=== PATIENT | male | born 1955 | race Caucasian/White ===

== ENCOUNTER → 2020-10-12 00:27 | Outpatient (CLI) | payer BC, SELFPAY ==
[2020-10-12 18:19] LABS: SARS-CoV-2 RNA PCR Negative
== END ==
PROVIDERS: PCP Physician Assistant; Visit Provider Internal Medicine Gastroenterology
DX: Z01.812 Encounter for preprocedural laboratory examination (principal); Z20.822 Contact with and (suspected) exposure to COVID-19
CPT/HCPCS: C9803; U0003; U0005

== ENCOUNTER 2020-10-15 00:14 | Day surgery (SDC) | payer BC, SELFPAY ==
[2020-09-21 13:59] VITALS: BMI 36.5
[2020-10-15] MEDS: LACTATED RINGERS 1,000 ML 150 ML IV CONT (06:30)
--- NOTE | 2020-10-15 06:37 | WPDANESEPPF ---
Anes - Initial Pre Proc Eval Procedure: Operation Date: 10/15/20 07:30 Proposed Procedures p Screening Colonoscopy - Brad De Los Santos MD Date/Time: 10/15/20 06:37 Surgeon: Brad De Los Santos MD Pre Op Diagnosis: Neoplasm Screening Patient Data Age: 65 Gender: M Height: 6 ft 2 in Weight: 128 kg Allergies Allergy/AdvReac Type Severity Reaction Status Date / Time No Known Allergies Allergy Verified 09/21/20 14:00 Home Medications Medication Instructions Recorded Confirmed Type enalapril maleate 10 mg tablet 10 mg PO DAILY #90 tablet 11/02/19 09/21/20 Rx esomeprazole magnesium 20 mg 40 mg PO DAILY cap 08/21/20 09/21/20 History capsule,delayed release Boswellia 500 mg PO DAILY 09/21/20 09/21/20 History turmeric root extract 500 mg PO DAILY 09/21/20 09/21/20 History Patient hx anesthesia problems: none Family hx anesthesia problems: none PMFSH Past Medical History Medical History Abnormal myocardial perfusion study Benign hypertension Cervical spine disease (~2008) chronic Exertional angina Fatty liver GERD (gastroesophageal reflux disease) Hypertension Neck pain Obesity Surgical History Surgical History History of hernia repair (~1960) Family History Family History Grandparent Diabetes mellitus Acute myocardial infarction Cerebrovascular accident Father Asthma Family history of malignant neoplasm of esophagus Other Family history of arthritis Family history of cardiovascular disease Family history of malignant neoplasm Family history of malignant neoplasm of breast in first degree relative Family history of seizure disorder Hypertension Malignant neoplasm of prostate Social History Social History Smoking packs per day: 1.5 Smoking cigarettes per day: 30.0 Years smoked: 4 Smoking pack-years: 6.00 Smoking status: Former smoker Tobacco type: cigarettes Second hand tobacco smoke exposure: No Smoking end date: 08/31/82 Alcohol intake: current Drinks per week: 2 Substance use: never Substance use type: does not use Living arrangements: with family Gender identity (if verbalized by the patient): Male Spiritual care concerns: No Anes - Eval Final PreProcedure Day of Procedure 10/15/20 06:37 Patient weight: obese Heart: regular rate and rhythm Lungs: clear to auscultation Airway: Mallampati scale class II Neurological: alert and oriented Last oral intake: >/= 8 hours ASA classification: III Emergent: no Anesthetic plan: proceed Anesthesia type and monitoring: general GIVS and standard monitoring Informed Consent: The patient's anesthetic plan and its attendant risks and benefits were discussed with the patient/family/POA. Questions were solicited and answers provided to the satisfaction of the patient/family/POA.
--- NOTE | 2020-10-15 07:41 | PM.HPGS ---
History of Present Illness History of Present Illness Consent: Risks, benefits, and alternatives have been discussed and questions answered. Patient agrees to proceed with procedure. Chief complaint: Neoplasm Screening Narrative: Herminio Mobley is a 65 year old male here for screening colonoscopy, last one about 13 years ago. Review of Systems Constitutional: Constitutional: Denies headache(s) and Denies weakness Eyes: Eyes: Denies blurry vision ENT: Reports Normal hearing present, Denies headache(s) and Denies neck pain Cardiovascular: Cardiovascular: Denies chest pain and Denies dyspnea Respiratory: Respiratory: Denies dyspnea Gastrointestinal: Gastrointestinal: Reports no additional gastrointestinal complaints Genitourinary: Genitourinary: Denies dysuria Musculoskeletal: Musculoskeletal: Denies neck pain Integumentary/Breasts: Skin/Breast: Denies dry skin Neurologic: Reports Normal hearing present, Denies headache(s) and Denies weakness Psychiatric: Psychiatric: Denies anxiety Endocrine: Endocrine: Denies change in body appearance Hematologic/Lymphatic: Hematologic/Lymphatic: Denies easy bleeding Allergic/Immunologic: Allergic/Immunologic: Denies urticaria PMFSH Past Medical History Medical History Abnormal myocardial perfusion study Benign hypertension Cervical spine disease (~2008) chronic Exertional angina Fatty liver GERD (gastroesophageal reflux disease) Hypertension Neck pain Obesity Surgical History Surgical History History of hernia repair (~1960) Family History Family History Grandparent Diabetes mellitus Acute myocardial infarction Cerebrovascular accident Father Asthma Family history of malignant neoplasm of esophagus Other Family history of arthritis Family history of cardiovascular disease Family history of malignant neoplasm Family history of malignant neoplasm of breast in first degree relative Family history of seizure disorder Hypertension Malignant neoplasm of prostate Social History Social History Smoking packs per day: 1.5 Smoking cigarettes per day: 30.0 Years smoked: 4 Smoking pack-years: 6.00 Smoking status: Former smoker Tobacco type: cigarettes Second hand tobacco smoke exposure: No Smoking end date: 08/31/82 Alcohol intake: current Drinks per week: 2 Substance use: never Substance use type: does not use Living arrangements: with family Gender identity (if verbalized by the patient): Male Spiritual care concerns: No Meds Home Medications and Allergies Home Medications Medication Instructions Recorded Confirmed Type enalapril maleate 10 mg tablet 10 mg PO DAILY #90 tablet 11/02/19 09/21/20 Rx esomeprazole magnesium 20 mg 40 mg PO DAILY cap 08/21/20 09/21/20 History capsule,delayed release Boswellia 500 mg PO DAILY 09/21/20 09/21/20 History turmeric root extract 500 mg PO DAILY 09/21/20 09/21/20 History Allergies Allergy/AdvReac Type Severity Reaction Status Date / Time No Known Allergies Allergy Verified 09/21/20 14:00 Exam Const: General: comfortable and no acute distress HENMT: General nose exam: Normal nares present Eyes: General: appearance normal, both eyes and all related structures Neck: Neck: no JVD Resp: Auscultation: clear to auscultation bilaterally Cardio: Rate: regular rate Rhythm: regular rhythm GI: Inspection: non-distended GI Palp: Yes Soft to palpation Skin: General skin exam: normal color Neuro: General: gait normal Speech: normal speech Extrem: General: normal to inspection Psych: Mental Status: mental status grossly normal Assessment and Plan Assessment and plan (1) Colon cancer screening: Code(s): Z12.11 - Encounter f
[2020-10-15 08:01] VITALS: BP 112/71; PULSE 82; RESP 18; O2SAT 96
[2020-10-15 08:11] VITALS: BP 107/77; PULSE 86; RESP 20; O2SAT 95
[2020-10-15 08:26] VITALS: BP 155/122; PULSE 69; RESP 19; O2SAT 95
== END 2020-10-15 08:41 | disposition home or self-care (01) ==
PROVIDERS: PCP Physician Assistant; Visit Provider Internal Medicine Gastroenterology
PROC: 0DJD8ZZ Inspection of Lower Intestinal Tract, Via Natural or Artificial Opening Endoscopic (ICD-10-PCS; CPT 45378; principal; 2020-10-15 07:30)
DX: Z12.11 Encounter for screening for malignant neoplasm of colon (principal); D12.4 Benign neoplasm of descending colon; K57.30 Diverticulosis of large intestine without perforation or abscess without bleeding; K64.8 Other hemorrhoids; I10 Essential (primary) hypertension; I20.8 Other forms of angina pectoris; K76.0 Fatty (change of) liver, not elsewhere classified; K21.9 Gastro-esophageal reflux disease without esophagitis; R94.39 Abnormal result of other cardiovascular function study; M47.812 Spondylosis without myelopathy or radiculopathy, cervical region; Z87.891 Personal history of nicotine dependence; E66.9 Obesity, unspecified; Z68.36 Body mass index [BMI] 36.0-36.9, adult
CPT/HCPCS: 45380; 88305; J2704; J7120

== ENCOUNTER → 2020-12-22 07:13 | Outpatient (CLI) | payer BC, SELFPAY ==
[2020-12-22 20:53] LABS: SARS-CoV-2 RNA PCR Negative
== END ==
PROVIDERS: PCP Physician Assistant; Visit Provider Internal Medicine Gastroenterology
DX: Z01.812 Encounter for preprocedural laboratory examination (principal); Z20.822 Contact with and (suspected) exposure to COVID-19
CPT/HCPCS: C9803; U0003; U0005

== ENCOUNTER 2020-12-26 00:30 | Day surgery (SDC) | payer BC, SELFPAY ==
[2020-12-17 14:53] VITALS: BMI 34.0
[2020-12-26 06:18] VITALS: BP 123/72; PULSE 63; RESP 16; TEMP 36.2; O2SAT 97; BMI 47.0
[2020-12-26] MEDS: LACTATED RINGERS 1,000 ML 150 ML IV CONT (06:31)
--- NOTE | 2020-12-26 07:19 | WPDANESEPPF ---
Anes - Initial Pre Proc Eval Procedure: Operation Date: 12/26/20 07:30 Proposed Procedures p Esophagogastroduodenoscopy - Brad De Los Santos MD Date/Time: 12/26/20 07:19 Surgeon: Brad De Los Santos MD Pre Op Diagnosis: GERD Patient Data Age: 65 Gender: M Height: 6 ft 2 in Weight: 166.2 kg Last Vital Signs Temp 97.1 F L 12/26/20 06:18 Pulse 63 12/26/20 06:18 Resp 16 12/26/20 06:18 BP 123/72 12/26/20 06:18 Pulse Ox 97 12/26/20 06:18 Allergies Allergy/AdvReac Type Severity Reaction Status Date / Time No Known Allergies Allergy Verified 12/26/20 06:16 Home Medications Medication Instructions Recorded Confirmed Type esomeprazole magnesium 20 mg 40 mg PO DAILY cap 08/21/20 12/26/20 History capsule,delayed release Boswellia 500 mg PO DAILY 09/21/20 12/26/20 History turmeric root extract 500 mg PO DAILY 09/21/20 12/26/20 History enalapril maleate 10 mg tablet 10 mg PO DAILY #90 tablet 11/07/20 12/26/20 Rx Patient hx anesthesia problems: none Family hx anesthesia problems: none PMFSH Past Medical History Medical History Abnormal myocardial perfusion study Benign hypertension Cervical spine disease (~2008) chronic Exertional angina Fatty liver GERD (gastroesophageal reflux disease) Hypertension Neck pain Obesity Surgical History Surgical History History of hernia repair (~1960) Family History Family History Grandparent Diabetes mellitus Acute myocardial infarction Cerebrovascular accident Father Asthma Family history of malignant neoplasm of esophagus Other Family history of arthritis Family history of cardiovascular disease Family history of malignant neoplasm Family history of malignant neoplasm of breast in first degree relative Family history of seizure disorder Hypertension Malignant neoplasm of prostate Social History Social History Smoking packs per day: 1.5 Smoking cigarettes per day: 30.0 Years smoked: 4 Smoking pack-years: 6.00 Smoking status: Never smoker Tobacco type: cigarettes Second hand tobacco smoke exposure: No Smoking end date: 08/31/82 Alcohol intake: current Drinks per week: 2 Substance use: never Substance use type: does not use Living arrangements: alone Gender identity (if verbalized by the patient): Male Spiritual care concerns: No Anes - Eval Final PreProcedure Day of Procedure 12/26/20 07:19 Patient weight: morbidly obese Heart: regular rate and rhythm Lungs: clear to auscultation Airway: Mallampati scale class III Neurological: alert and oriented Last oral intake: >/= 8 hours ASA classification: III Emergent: no Anesthetic plan: proceed Anesthesia type and monitoring: general GIVS and standard monitoring Informed Consent: The patient's anesthetic plan and its attendant risks and benefits were discussed with the patient/family/POA. Questions were solicited and answers provided to the satisfaction of the patient/family/POA.
--- NOTE | 2020-12-26 07:37 | PM.HPGS ---
History of Present Illness History of Present Illness Consent: Risks, benefits, and alternatives have been discussed and questions answered. Patient agrees to proceed with procedure. Chief complaint: GERD Narrative: Herminio Mobley is a 65 year old male with gerd taking nexium for several years, never had egd Review of Systems Constitutional: Constitutional: Denies headache(s) and Denies weakness Eyes: Eyes: Denies blurry vision ENT: Reports Normal hearing present, Denies headache(s) and Denies neck pain Cardiovascular: Cardiovascular: Denies chest pain and Denies dyspnea Respiratory: Respiratory: Denies dyspnea Gastrointestinal: Gastrointestinal: Reports no additional gastrointestinal complaints Genitourinary: Genitourinary: Denies dysuria Musculoskeletal: Musculoskeletal: Denies neck pain Integumentary/Breasts: Skin/Breast: Denies dry skin Neurologic: Reports Normal hearing present, Denies headache(s) and Denies weakness Psychiatric: Psychiatric: Denies anxiety Endocrine: Endocrine: Denies change in body appearance Hematologic/Lymphatic: Hematologic/Lymphatic: Denies easy bleeding Allergic/Immunologic: Allergic/Immunologic: Denies urticaria PMFSH Past Medical History Medical History Abnormal myocardial perfusion study Benign hypertension Cervical spine disease (~2008) chronic Exertional angina Fatty liver GERD (gastroesophageal reflux disease) Hypertension Neck pain Obesity Surgical History Surgical History History of hernia repair (~1960) Family History Family History Grandparent Diabetes mellitus Acute myocardial infarction Cerebrovascular accident Father Asthma Family history of malignant neoplasm of esophagus Other Family history of arthritis Family history of cardiovascular disease Family history of malignant neoplasm Family history of malignant neoplasm of breast in first degree relative Family history of seizure disorder Hypertension Malignant neoplasm of prostate Social History Social History Smoking packs per day: 1.5 Smoking cigarettes per day: 30.0 Years smoked: 4 Smoking pack-years: 6.00 Smoking status: Never smoker Tobacco type: cigarettes Second hand tobacco smoke exposure: No Smoking end date: 08/31/82 Alcohol intake: current Drinks per week: 2 Substance use: never Substance use type: does not use Living arrangements: alone Gender identity (if verbalized by the patient): Male Spiritual care concerns: No Meds Home Medications and Allergies Home Medications Medication Instructions Recorded Confirmed Type esomeprazole magnesium 20 mg 40 mg PO DAILY cap 08/21/20 12/26/20 History capsule,delayed release Boswellia 500 mg PO DAILY 09/21/20 12/26/20 History turmeric root extract 500 mg PO DAILY 09/21/20 12/26/20 History enalapril maleate 10 mg tablet 10 mg PO DAILY #90 tablet 11/07/20 12/26/20 Rx Allergies Allergy/AdvReac Type Severity Reaction Status Date / Time No Known Allergies Allergy Verified 12/26/20 06:16 Vital Signs Vital Signs - 24 hr 12/26/20 06:18 Temperature 97.1 F L Pulse Rate 63 Respiratory Rate 16 Blood Pressure 123/72 Pulse Oximetry 97 Exam Const: General: comfortable and no acute distress HENMT: General nose exam: Normal nares present Eyes: General: appearance normal, both eyes and all related structures Neck: Neck: no JVD Resp: Auscultation: clear to auscultation bilaterally Cardio: Rate: regular rate Rhythm: regular rhythm GI: Inspection: non-distended GI Palp: Yes Soft to palpation Skin: General skin exam: normal color Neuro: General: gait normal Speech: normal speech Extrem: General: normal to inspection Psych: Mental Status: mental
[2020-12-26] MEDS: BENZOCAINE (*SP) 60 ML SPRAY CAN (HURRICAINE) 1 SPRAY MUCOUS MEM (07:39)
[2020-12-26 07:47] VITALS: BP 122/73; PULSE 65; RESP 16; O2SAT 96
[2020-12-26 08:07] VITALS: BP 121/65; PULSE 62; RESP 20; O2SAT 99
[2020-12-26 08:17] VITALS: BP 124/80; PULSE 62; RESP 21; O2SAT 100
== END 2020-12-26 08:22 | disposition home or self-care (01) ==
PROVIDERS: PCP Physician Assistant; Visit Provider Internal Medicine Gastroenterology
PROC: 0DJ08ZZ Inspection of Upper Intestinal Tract, Via Natural or Artificial Opening Endoscopic (ICD-10-PCS; CPT 43235; principal; 2020-12-26 07:30)
DX: K29.50 Unspecified chronic gastritis without bleeding (principal); K21.9 Gastro-esophageal reflux disease without esophagitis; I10 Essential (primary) hypertension; E66.01 Morbid (severe) obesity due to excess calories; Z68.41 Body mass index [BMI] 40.0-44.9, adult
CPT/HCPCS: 43239; 88305; J2704; J7120

== ENCOUNTER 2021-11-12 15:20 | Emergency (ER) | payer BC, SELFPAY ==
[2021-11-12 15:24] VITALS: BP 137/73; PULSE 92; RESP 12; TEMP 37.7; O2SAT 98
--- NOTE | 2021-11-12 15:28 | ED.URI ---
HPI - URI/Sore Throat General Chief Complaint: Upper Respiratory Infection Stated Complaint: Fever, Cough, congestion, sore throat Time Seen by Provider: 11/12/21 15:28 Source: patient and RN notes reviewed Mode of arrival: ambulatory Limitations: no limitations History of Present Illness HPI Narrative: 66-year-old male presented for complaint of sinus congestion for 2 days and fever of 101 today. Endorses feeling dizzy yesterday and some mild body aches. He took Motrin for fever today. Denies associated chest pain, shortness of breath, wheezing, nausea, vomiting, diarrhea. Has been boosted for COVID, not vaccinated for flu. He denies sick contacts. Related Data Home Medications Medication Instructions Recorded Confirmed esomeprazole magnesium 20 mg 40 mg PO DAILY cap 08/21/20 08/14/21 capsule,delayed release Allergies Allergy/AdvReac Type Severity Reaction Status Date / Time No Known Allergies Allergy Verified 08/14/21 13:36 Review of Systems Review of Systems: CONSTITUTIONAL: Endorses fever EYES: Denies visual changes, redness, or discharge ENT: Reports rhinorrhea, congestion, sinus pain CARDIOVASCULAR: Denies chest pain, palpitations, edema RESPIRATORY: Reports cough, post nasal drainage. Denies dyspnea GASTROINTESTINAL: Denies abdominal pain, nausea, vomiting, diarrhea SKIN: Denies rash or itching MUSCULOSKELETAL: Endorses myalgia NEUROLOGIC: Denies headache PMFSH Past Medical History Medical History Abnormal myocardial perfusion study Benign hypertension Cervical spine disease (~2008) chronic Exertional angina Fatty liver GERD (gastroesophageal reflux disease) Hypertension Neck pain Obesity Surgical History Surgical History History of hernia repair (~1960) Family History Family History Grandparent Diabetes mellitus Acute myocardial infarction Cerebrovascular accident Father Asthma Family history of malignant neoplasm of esophagus Other Family history of arthritis Family history of cardiovascular disease Family history of malignant neoplasm Family history of malignant neoplasm of breast in first degree relative Family history of seizure disorder Hypertension Malignant neoplasm of prostate Social History Social History Smoking packs per day: 1.5 Smoking cigarettes per day: 30.0 Years smoked: 4 Smoking pack-years: 6.00 Smoking status: Never smoker Tobacco type: cigarettes Second hand tobacco smoke exposure: No Smoking end date: 08/31/82 Alcohol intake: current Drinks per week: 2 Alcohol use details: consumes 2 glasses of wine occasionally Substance use: never Substance use type: does not use Gender identity (if verbalized by the patient): Male Spiritual care concerns: No Exam Narrative: GENERAL: well appearing HEAD: Normocephalic EYES: conjunctivae clear ENT: Mucous membranes moist. TM pearly alexander with light reflex bilaterally; no tragal tenderness. Oropharynx erythematous without lesions or exudate, no drooling, no hoarseness, no trismus, uvula midline. No tripod positioning, muffled voice, soft palate or pharyngeal wall bulging NECK: Supple. No lymphadenopathy CHEST: Clear to auscultation, breath sounds equal. No wheezing, rhonchi, rales, or stridor. No respiratory distress, speaks in full sentences. HEART: Regular rate and rhythm. No murmur heard. SKIN: Warm, dry, no rash. NEURO: Alert and oriented x3. PSYCH: Normal mood and affect Course Course Emergency Course: Patient is aware of diagnosis, understands and agrees to treatment plan. Anticipatory guidance given. Patient agrees to follow-up as directed and is aware of reasons to seek care at the emergency department. Portions of this record may have
== END 2021-11-12 16:01 | disposition home or self-care (01) ==
PROVIDERS: Emergency Provider Nurse Practitioner Family; PCP Family Medicine
DX: J06.9 Acute upper respiratory infection, unspecified (principal); Z20.822 Contact with and (suspected) exposure to COVID-19; K21.9 Gastro-esophageal reflux disease without esophagitis; I10 Essential (primary) hypertension; K76.0 Fatty (change of) liver, not elsewhere classified; E66.9 Obesity, unspecified; Z68.36 Body mass index [BMI] 36.0-36.9, adult
CPT/HCPCS: 87426; 87804; 99213; C9803; G0463

== ENCOUNTER 2025-08-04 15:24 | Outpatient (CLI) | payer MEDICARE, BC, SELFPAY ==
--- NOTE | ~2025-08-04 | XR_ITS ---
EXAMINATION: XR knee LT 3V, 08/04/2025 15:45 [facility] HISTORY: M25.562 - Pain in left knee COMPARISON: No comparisons available. Findings: No acute fracture or malalignment. Moderate to severe tricompartmental degenerative changes, small effusion Soft tissues unremarkable. Impression: No acute fracture or malalignment. Reviewed, dictated and finalized at location [facility] Impression: No acute fracture or malalignment.
--- OUTSIDE RECORDS SUMMARY | 2025-08-04 15:46 | XMS_ITS | Clinical Summary ---
Author Organization [facility] [address] Address [address] [place] [address] Care Team Providers Care Payroll Secretary Name Role Phone Ele Sanchez MD Primary Care Provider [phone] Allergies No known active allergies Medications enalapril (VASOTEC) 10 mg tablet Take 10 mg by mouth daily [address] (NexIUM) 40 mg capsule Take 40 mg by mouth daily before breakfast 9 Active UNABLE TO FIND CPAP Activ e Active Problems Problem Noted Date Diagnosed Date Abnormal stress test 12/21/2018 Lipid screening 12/21/2018 Essential hypertension 12/21/2018 Gastroesophageal reflux disease 12/21/2018 Obstructive sleep apnea syndrome 12/21/2018 Exercise intolerance 12/21/2018 Medical History Medical History Date Comments Hypertension Sleep apnea Family History Medical History Relation Name Comments Esophageal cancer Father Atrial fibrillation Mother Heart failure Mother Heart failure Sister Relation Name Status Comments Father Mother Sister Social History Tobacco Use Types Packs/Day Years Used Date Smoking Tobacco: Former Smokeless Tobacco: Never Tobacco Cessation:Counseling Given: Yes Alcohol Use Standard Drinks/Week Comments Yes 0 (1 standard drink = 0.6 oz pur e alcohol) rarely Personal Safety Answer Date Recorded Getting School Help Needed Not on file 11/14 Sex and Gender Information Value Date Recorded Sex Assigned at Not on file Legal Sex Male 2:17 PM CDT Gender Identity Not on file Sexual Orientation Not on file Last Filed Vital Signs Vital Sign Reading Time Taken Comments Blood Pressure 116/68 09/22/2019 1:52 PM [employer] Pulse 84 09/22/2019 1:52 PM [employer] Temperature - - Respiratory Rate 16 12/21/2018 11:0 4 AM CDT Oxygen Saturation 93% 09/22/2019 1:52 PM [employer] Inhaled Oxygen Concentration - - Weight 131.7 kg (290 lb 6.4 oz) 09/22/2019 1:52 PM [employer] Height 188 cm (6' 2) 09/22/2019 1:52 PM [employer] Body Mass Index 37.29 09/22/2019 1:52 PM [employer] Plan of Treatment Not on file Insurance [employer] Care Teams Payroll Secretary Relationship Specialty Start Date End Date Ele Sanchez MD PCP - General Family Practice 11/29/18
== END 2025-08-04 15:25 | disposition home or self-care (01) ==
PROVIDERS: PCP Family Medicine Adolescent Medicine
DX: M25.562 Pain in left knee (principal); M17.12 Unilateral primary osteoarthritis, left knee
CPT/HCPCS: 73562